=== PATIENT | male | born 1995 | race Hispanic/Latino ===

== ENCOUNTER 2019-06-14 15:44 | Emergency (ER) | payer OTHER ==
[2019-06-14] MEDS ORDERED: ACETAMINOPHEN EXTRA STRENGTH 500 MG TABLET ONE (16:34)
[2019-06-14 17:02] LABS: RAPID GROUP A STREP NEGATIVE (NEGATIVE)
== END 2019-06-14 17:56 | disposition home or self-care (01) ==
LOC: EDH 15:44
DX: J01.00 Acute maxillary sinusitis, unspecified (principal); R50.9 Fever, unspecified
CPT/HCPCS: 71045; 87804; 87880

== ENCOUNTER 2022-09-03 16:54 | Emergency (ER) | payer BC ==
[2022-09-03 18:05] LABS: BASOPHILS % (AUTO) 0.4 % (0.0-5.0); EOSINOPHILS % (AUTO) 1.7 % (0.0-8.0); HEMATOCRIT 42.3 % (42-54); LYMPHOCYTES % (AUTO) 26.8 % (21.0-51.0); MEAN CORPUSCULAR HEMOGLOBIN 30.7 pg (27.0-33.0); MEAN CORPUSCULAR HGB CONC 34.5 g/dL (32.0-36.0); MEAN CORPUSCULAR VOLUME 88.9 fL (79-99); MONOCYTES % (AUTO) 9.1 % (3.0-13.0); NEUTROPHILS % (AUTO) 61.7 % (40.0-77.0); PLATELET COUNT (AUTO) 258 K/uL (130-400); RED BLOOD CELL COUNT(AUTO) 4.76 MIL/uL (4.50-6.20); RED CELL DISTRIBUTION WIDTH 11.9 % (11.0-15.5); WHITE BLOOD COUNT (AUTO) 7.1 K/uL (4.8-10.8)
[2022-09-03 18:17] LABS: CREATININE 0.9 mg/dL (0.5-1.5); POTASSIUM 3.3 mmol/L (3.5-5.1)
[2022-09-03 18:21] LABS: ALBUMIN 3.6 g/dL (3.5-5.0); MAGNESIUM 1.7 mg/dL (1.80-2.40); TOTAL PROTEIN, SERUM 6.8 g/dL (6.0-8.3)
[2022-09-03] MEDS ORDERED: POTASSIUM CHLORIDE 10% ELIXIR 20 MEQ/15 ML UDCUP PO ONE (19:00)
[2022-09-03] MEDS ORDERED: MAGNESIUM OXIDE 400 MG TABLET PO ONE (19:00)
[2022-09-03] MEDS ORDERED: ASPIRIN 325MG TAB PO ONE (19:30)
[2022-09-03 19:58] VITALS: BP 126/71; PULSE 82; RESP 16; O2SAT 97
== END 2022-09-03 20:16 | disposition home or self-care (01) ==
LOC: EDH 16:54
DX: E87.6 Hypokalemia (principal); E83.42 Hypomagnesemia; R20.0 Anesthesia of skin
CPT/HCPCS: 36415; 70450; 80053; 82948; 83735; 85025